=== PATIENT | female | born 1940 | race Caucasian/White ===

== ENCOUNTER 2022-04-18 13:08 | Outpatient (CLI) | payer MEDICARE, BC ==
--- NOTE | 2022-04-18 15:18 | XRAY Report ---
PROCEDURE: Foot 3 View BILAT INDICATIONS: BL FOOT PAIN TECHNIQUE: 3 views of the bilateral feet were acquired. COMPARISON: Bilateral ankles from the same date FINDINGS: Bones: No fractures or dislocations. No suspicious bony lesions. Bilateral pes planus. Bilateral ta rsal metatarsal degenerative change, right greater than left. Bilateral remote bunionectomies are not ed, as well as first metatarsal osteotomies, well healed. Soft tissues: No tibiotalar joint effusion. Achilles tendon appears normal. IMPRESSION: 1. Pes planus bilaterally, bilateral midfoot degenerative change 2. 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 Reviewed by: Hal Shahid MD on 04/18/2022 3:16 PM PST Approved by: Hal Shahid MD on 04/18/2022 3:16 PM PST Station ID: [id number]
--- NOTE | 2022-04-18 15:25 | XRAY Report ---
PROCEDURE: Ankle 3 View BILAT INDICATIONS: BL ANKLE PAIN TECHNIQUE: 3 views of the bilateral ankles were acquired. COMPARISON: Bilateral feet from the same date FINDINGS: Bones: There is a nondisplaced tip of left lateral malleolus fracture, which may be acute or subacute . No other fractures or dislocations on the left. No fractures or dislocations involving the right an kle. Ankle mortise is normally aligned. No suspicious bony lesions. Soft tissues: No tibiotalar joint effusion. Achilles tendon appears normal. IMPRESSION: 1. Question acute or subacute nondisplaced tip of lateral malleolus fracture of left ankle. 2. No fractures or dislocations are identified involving the right ankle. Reviewed by: Hal Shahid MD on 04/18/2022 3:24 PM PST Approved by: Hal Shahid MD on 04/18/2022 3:24 PM PST Station ID: [id number]
== END 2022-04-18 13:09 | disposition home or self-care (01) ==
LOC: DI 13:08
PROVIDERS: ATTEND Podiatrist
DX: M25.571 Pain in right ankle and joints of right foot (principal); M25.572 Pain in left ankle and joints of left foot; M21.42 Flat foot [pes planus] (acquired), left foot; M21.41 Flat foot [pes planus] (acquired), right foot